=== PATIENT | male | born 1980 | race African-American/Black ===

== ENCOUNTER 2017-07-29 12:07 | Emergency (ER) | payer OTHER ==
[~2017-07-29] VITALS: Ht 188 cm; Wt 158.8 kg
[2017-07-29 12:23] VITALS: BP 146/90
[2017-07-29] MEDS ORDERED: ACYCLOVIR200 MG ORAL (12:38)
[2017-07-29 12:50] VITALS: BP 146/90
--- NOTE | 2017-07-29 20:10 | Emergency Room Report ---
History of Present Illness General Chief Complaint: Skin Rash/Abscess Source: Patient Present Illness HPI The patient is a 37-year-old male with a history of genital warts presenting for right groin lesion which began 2 days prior. He states that this looks similar to past genital warts. Pain is a 0/10. He denies any other lesions. He denies any other symptoms including nausea, vomiting, fever, chills, penile discharge, dysuria, hematuria Allergies: Coded Allergies: No Known Allergies (Unverified , 07/29/17) Patient History Past Medical History: see triage record Pertinent Family History: none Reviewed Nursing Documentation: PMH: Agreed, PSxH: Agreed Nursing Documentation-PMH Past Medical History: No History, Except For Hx Hypertension: Yes Hx Diabetes: Yes Review of Systems All Other Systems: negative except mentioned in HPI Physical Exam Vital Signs Date Time Temp Pulse Resp B/P (MAP) Pulse Ox O2 Delivery O2 Flow Rate FiO2 07/29/17 12:16 98.2 111 20 146/90 96 Room Air Sp02 EP Interpretation: reviewed, normal General Appearance: no apparent distress, alert, GCS 15, non-toxic Head: normocephalic, atraumatic Eyes: bilateral eye normal inspection, bilateral eye PERRL ENT: hearing grossly normal, normal pharynx, no angioedema, normal voice Neck: full range of motion, supple/symm/no masses Musculoskeletal: back normal, gait/station normal, normal range of motion, tender - R inguinal region over the skin lesions Neurologic: alert, oriented x3, responsive, motor strength/tone normal, sensory intact, speech normal Psychiatric: judgement/insight normal, memory normal, mood/affect normal, no suicidal/homicidal ideation Skin: rash - R inguinal region has papular lesions Lymphatic: no adenopathy Medical Decision Making PA Attestation Dr. Mullins is my supervising physician. Patient management was discussed with my supervising physician Diagnostic Impression: Primary Impression: Genital warts ER Course The patient is a 37-year-old male with a history of genital warts presenting for right groin lesion which began 2 days prior Ddx considered include but not limited to genital warts, insect bite, contact dermatitis, eczema, cellulitis, STD, among others PE: NAD There are multiple papular lesions at the right inguinal area. Nontender. No surrounding erythema. Penile discharge or lesions on the penis. No scrotal lesions The patient is discharged home with prescription for antiviral as this began 2 days prior. ER precautions are given Last Vital Signs Date Time Temp Pulse Resp B/P (MAP) Pulse Ox O2 Delivery O2 Flow Rate FiO2 07/29/17 12:50 98.2 20 146/90 96 Room Air 07/29/17 12:16 111 Status: improved Disposition: HOME, SELF-CARE Condition: Improved Scripts Acyclovir* (ACYCLOVIR*) 200 Mg Capsule 200 MG ORAL FIVE TIMES A DAY, #25 CAP Prov: NADIA CHRISTIE 07/29/17 Referrals: NON PHYSICIAN (PCP) Patient Instructions: Genital Warts Additional Instructions: I discussed my findings with the patient. All questions and concerns have been answered. Treatment and medication compliance have been addressed. I advised the patient that they need to follow up with PMD in 3-5 days. Return to ED if symptoms worsen, new symptoms arise, or if needed for any reason. Patient verbalized understanding of discharge instructions. NADIA CHRISTIE Jul 29, 2017 20:10
== END 2017-07-29 13:00 | disposition home or self-care (01) ==
LOC: EMR 12:55
DX: B07.9 Viral wart, unspecified (principal)
CPT/HCPCS: 99283

== ENCOUNTER 2017-08-18 21:44 | Emergency (ER) | payer OTHER ==
[~2017-08-18] VITALS: Ht 188 cm; Wt 131.5 kg
[~2017-08-18 21:44] MED LIST: ACYCLOVIR200 MG ORAL
[2017-08-18] MEDS ORDERED: [UNRECOGNIZED DRUG - OTHER] TP (23:08)
[2017-08-18 23:11] VITALS: BP 138/90
[2017-08-18 23:12] VITALS: BP 138/90
--- NOTE | 2017-08-19 01:14 | Emergency Room Report ---
History of Present Illness General Chief Complaint: Male Urogenital Problems Source: Patient Present Illness HPI Patient is a 37-year-old male who presented after increased rash. Patient had noted some area to his right inguinal area which had a wart . Patient prior history of HPV. Patient was given acyclovir in the past without improvement in the rash. Allergies: Coded Allergies: No Known Allergies (Unverified , 07/29/17) Patient History Reviewed Nursing Documentation: PMH: Agreed, PSxH: Agreed Nursing Documentation-PMH Hx Hypertension: Yes Hx Diabetes: Yes Physical Exam Vital Signs Date Time Temp Pulse Resp B/P (MAP) Pulse Ox O2 Delivery O2 Flow Rate FiO2 08/18/17 22:13 98.2 116 18 146/93 95 Room Air General Appearance: well appearing, no apparent distress, alert, GCS 15, obese Head: normocephalic, atraumatic ENT: hearing grossly normal, normal voice Neck: full range of motion, supple Respiratory: no respiratory distress, speaking full sentences Musculoskeletal: no calf tenderness Neurologic: normal inspection, alert, oriented x3, responsive, normal gait Psychiatric: mood/affect normal Skin: no rash, other - right inguinal area lesion pedunculated Medical Decision Making Diagnostic Impression: Primary Impression: Genital warts ER Course Patient presented for skin rash. the differential diagnosis included was not limited to the genital warts, skin tag, abscess among others. The patient given prescription for podophyllin. The patient is advised to followup with dermatology for possible cryotherapy if needed. The patient is advised to follow up with primary care doctor in 1-2 days. Patient is advised to return if any worsening condition or if any changes in status that are concerning. This report is dictated with [employer] chart clerk software which may occasionally lead to discrepancies related to use of this software. Last Vital Signs Date Time Temp Pulse Resp B/P (MAP) Pulse Ox O2 Delivery O2 Flow Rate FiO2 08/18/17 23:12 98.2 74 18 138/90 95 Room Air Status: improved Disposition: HOME, SELF-CARE Condition: Stable Scripts Podophyllum Resin (PODOCON-25) 15 Ml Liquid 15 ML TP EVERY 12 HOURS for 3 Days, #15 ML Prov: Marco Wright 08/18/17 Patient Instructions: Genital Warts, [id number] Marco Wright Aug 19, 2017 01:14
== END 2017-08-18 23:13 | disposition home or self-care (01) ==
LOC: EMR 22:44
DX: B07.8 Other viral warts (principal)
CPT/HCPCS: 99283

== ENCOUNTER 2017-08-27 13:49 | Emergency (ER) | payer OTHER ==
[~2017-08-27] VITALS: Ht 188 cm; Wt 158.8 kg
[~2017-08-27 13:49] MED LIST changes: +[UNRECOGNIZED DRUG - OTHER] TP
[2017-08-27 14:30] VITALS: BP 143/98
[2017-08-27] MEDS ORDERED: BACITRACIN1 EACH TOPIC (15:17)
[2017-08-27] MEDS ORDERED: KEFLEX500 MG ORAL (15:17)
[2017-08-27] MEDS ORDERED: Bacitracin Oint UD TOPIC ONE (15:17)
[2017-08-27 15:31] VITALS: BP 143/98
--- NOTE | 2017-08-27 16:52 | Emergency Room Report ---
History of Present Illness General Chief Complaint: Skin Rash/Abscess Source: Patient, Medical Record Present Illness HPI 37-year-old male, history of genital warts, presenting with skin burn. Patient states that he took the medication that was prescribed, 9 days ago,podophyllum, stated that it removed his work but it also caught on the other part of the skin and burned it. Also states that he has had some green discharge. no fever or chills. Allergies: Coded Allergies: No Known Allergies (Unverified , 07/29/17) Patient History Past Medical History: see triage record Past Surgical History: none Pertinent Family History: none Reviewed Nursing Documentation: PMH: Agreed, PSxH: Agreed Nursing Documentation-PMH Past Medical History: No History, Except For Hx Hypertension: Yes Hx Diabetes: Yes Review of Systems All Other Systems: negative except mentioned in HPI Physical Exam Vital Signs Date Time Temp Pulse Resp B/P (MAP) Pulse Ox O2 Delivery O2 Flow Rate FiO2 08/27/17 13:53 97.9 119 18 143/98 97 Room Air Sp02 EP Interpretation: reviewed, normal General Appearance: normal inspection, well appearing, no apparent distress, alert, GCS 15, non-toxic Head: normocephalic, atraumatic Eyes: bilateral eye normal inspection, bilateral eye PERRL, bilateral eye EOMI ENT: normal ENT inspection, normal pharynx, normal voice, moist mucus membranes Neck: normal inspection, full range of motion, supple Respiratory: normal inspection, lungs clear, normal breath sounds, no respiratory distress, no retraction, no wheezing, speaking full sentences, chest symmetrical Cardiovascular #1: normal inspection, regular rate, rhythm, no edema, normal capillary refill Cardiovascular #2: 2+ radial (R), 2+ radial (L) Gastrointestinal: normal inspection, non tender, soft, non-distended, no guarding Genitourinary: no CVA tenderness Musculoskeletal: normal inspection, back normal, normal range of motion, non- tender Neurologic: normal inspection, alert, oriented x3, responsive, motor strength/ tone normal, sensory intact, normal gait, speech normal Psychiatric: normal inspection, judgement/insight normal, memory normal Skin: warm/dry, well hydrated, normal turgor, other - +R groin with 3x3cm chemical burn, tender. +slight yellow DC. warts removed Medical Decision Making Diagnostic Impression: Primary Impression: Cellulitis Additional Impressions: Chemical burn Genital warts ER Course 37-year-old male, with genital warts that were removed with podophyllum, now with chemical burn and discharge DDX: Chemical burn with infection Plan: Clean wound, antibiotics ER course: Wound was cleaned, bacitracin placed, clean non-adherent dressing placed Disposition: Patient is to be discharged to home. Prescriptions given are Keflex and bacitracin Patient is instructed to follow up with their primary care doctor in 3-5 days for wound recheck Strict return precautions discussed with patient such as fever, chills, worsening/severe pain,, which may indicate severe illness. Patient verbalizes understanding and agrees with plan. Please note that this Emergency Department Report was dictated using [employer] file clerk technology software, occasionally this can lead to erroneous entry secondary to interpretation by the dictation equipment Last Vital Signs Date Time Temp Pulse Resp B/P (MAP) Pulse Ox O2 Delivery O2 Flow Rate FiO2 08/27/17 15:31 97.9 18 143/98 97 Room Air 08/27/17 13:53 119 Disposition: HOME, SELF-CARE Condition: Improved Scripts Bacitracin (BACITRACIN*) 1 Each Packet 1 PACKET TOPIC DAILY, #15 PACKET 0 Refills Prov: Dario Black M.D. 08/27/17 Cephalexin* (KEFLEX*) 500 Mg Capsule 500 MG ORAL Q6H, #28 CAP 0 Refills Prov: Dario Black M.D. 08/27/17 Referrals: NOT CHOSEN IPA/,REFERRING (PCP) Patient Instructions: Cellulitis, [id number], Chemical Burn, [id number] Dario Black M.D. Aug 27, 2017 16:52
== END 2017-08-27 15:33 | disposition home or self-care (01) ==
LOC: EMR 15:19
DX: L03.314 Cellulitis of groin (principal); T21.42XA Corrosion of unspecified degree of abdominal wall, initial encounter; B07.9 Viral wart, unspecified; I10 Essential (primary) hypertension; E11.9 Type 2 diabetes mellitus without complications
CPT/HCPCS: 99284

== ENCOUNTER 2018-05-19 10:23 | Emergency (ER) | payer SELFPAY ==
[~2018-05-19] VITALS: Ht 188 cm; Wt 154.2 kg
[~2018-05-19 10:23] MED LIST changes: +BACITRACIN1 EACH TOPIC; +KEFLEX500 MG ORAL
--- NOTE | 2018-05-19 11:01 | Emergency Room Report ---
History of Present Illness General Chief Complaint: Back Pain-No Injury Source: Patient Present Illness [facility] Mr. Joy is a 38-year-old male with history of hypertension diabetes who presents with 2 weeks of left lower back pain. Feels as if his back is pulling. The pain is worse at night in the mornings. Pain is worse with certain positions. No history of car accident. No history of previous back injuries. No history of heavy lifting. 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 No history of altercations. Pain is moderately severe. Ibuprofen does provide mild relief. He did make an appointment with his PCP which is 3 weeks away. He was able to drive to the ED. Denies numbness or tingling in the legs. Denies weight loss. Denies leg weakness. Allergies: Coded Allergies: No Known Allergies (Unverified , 07/29/17) Patient History Past Medical History: DM, HTN Past Surgical History: other - orthopedic surgery Social History: Reports: alcohol use; Denies: smoking Nursing Documentation-[facility] Past Medical History: No History, Except For Hx Hypertension: Yes Hx Diabetes: Yes Review of Systems Constitutional: Denies: fever, malaise, weakness Respiratory: Denies: cough Cardiovascular: Denies: chest pain Gastrointestinal: Denies: abdominal pain Musculoskeletal: Reports: back pain, muscle pain; Denies: muscle stiffness Neurological: Denies: numbness, paresthesia All Other Systems: negative except mentioned in HPI Physical Exam Vital Signs Date Time Temp Pulse Resp B/P (MAP) Pulse Ox O2 Delivery O2 Flow Rate FiO2 05/19/18 10:34 98.6 86 20 134/91 99 Room Air 98.6 Sp02 EP Interpretation: reviewed, normal General Appearance: no apparent distress, alert, GCS 15, non-toxic Head: normocephalic, atraumatic ENT: hearing grossly normal, normal pharynx, no angioedema, normal voice Neck: full range of motion, supple/symm/no masses Respiratory: chest non-tender, lungs clear, normal breath sounds, speaking full sentences Cardiovascular #1: regular rate, rhythm, no edema Cardiovascular #2: 2+ carotid (R), 2+ carotid (L), 2+ radial (R), 2+ radial (L) , 2+ dorsalis pedis (R), 2+ dorsalis pedis (L) Gastrointestinal: normal bowel sounds, non tender, soft, non-distended, no guarding, no rebound Rectal: deferred Genitourinary: normal inspection, no vertebral tenderness, muscle spasm Musculoskeletal: back normal, gait/station normal, normal range of motion, non- tender, calf tenderness Neurologic: alert, oriented x3, responsive, motor strength/tone normal, sensory intact, speech normal Psychiatric: judgement/insight normal, memory normal, mood/affect normal, no suicidal/homicidal ideation Reflexes: 3+ bicep (R), 3+ bicep (L), 3+ tricep (R), 3+ tricep (L), 3+ knee (R) , 3+ knee (L) Skin: normal color, no rash, warm/dry, well hydrated Lymphatic: no adenopathy Medical Decision Making Diagnostic Impression: Primary Impression: Back pain ER Course Mr. Joy presents with 2 weeks of left lower back pain. I suspect lumbar strain. Recommended continued use of ibuprofen. Prescribed [place] and Flexeril. I recommended outpatient physical therapy or chiropractic. He is neurologically intact without signs of cauda equina or cord compression. Last Vital Signs Date Time Temp Pulse Resp B/P (MAP) Pulse Ox O2 Delivery O2 Flow Rate FiO2 05/19/18 10:34 98.6 86 20 134/91 99 Room Air 98.6 Disposition: HOME, SELF-CARE Condition: Stable Referrals: NON PHYSICIAN (PCP) Lisa Hernandez MD May 19, 2018 11:01
[2018-05-19] MEDS ORDERED: CYCLOBENZAPRINE10 MG ORAL (11:02)
[2018-05-19] MEDS ORDERED: PERCOCET 5-3251 EACH ORAL (11:02)
[2018-05-19] MEDS ORDERED: Ketorolac 60mg Inj IM ONE (11:15)
[2018-05-19 11:22] VITALS: BP 124/89
== END 2018-05-19 11:22 | disposition home or self-care (01) ==
LOC: EMR 10:55
DX: M54.5 Low back pain (principal); I10 Essential (primary) hypertension; E11.9 Type 2 diabetes mellitus without complications
CPT/HCPCS: 96372; 99283